=== PATIENT | male | born 1965 | race Two or more races ===

== ENCOUNTER 2024-04-21 01:43 | Inpatient (IN) | payer MEDICAID ==
[~2024-04-21] VITALS: Ht 177.8 cm; Wt 76.1 kg
[2024-04-21] MEDS ORDERED: NO HOME MEDS (02:53)
[2024-04-21] MEDS: D5-1/2NS w/20 mEq potassium per 1000ml IV ONE (03:12)
[2024-04-21 03:27] LABS: BASOPHILS % (AUTO) 0.3 % (0-1); EOSINOPHILS % (AUTO) 0 % (0-6); HEMATOCRIT 45.9 % (42.0-52.0); HEMOGLOBIN 15.4 g/dl (14.0-17.9); LYMPHOCYTES % (AUTO) 9.3 % (21-51); MEAN CORPUSCULAR HEMOGLOBIN 31.6 PG (27.0-31.0); MEAN CORPUSCULAR HGB CONC 33.6 g/dL (33.0-36.5); MEAN CORPUSCULAR VOLUME 94.3 FL (78-98); MONOCYTES % (AUTO) 9.2 % (2-12); NEUTROPHILS # (AUTO) 8.5 X10'3 (1.8-7.7); NEUTROPHILS % (AUTO) 81.2 % (42-75); PLATELET COUNT 210 X10'3 (140-440); RED BLOOD COUNT 4.86 X10'6 (4.70-6.10); RED CELL DISTRIBUTION WIDTH 13.9 % (11.5-14.5); WHITE BLOOD COUNT 10.5 X10'3 (4.5-11.0)
[2024-04-21 03:45] LABS: ALBUMIN 3.8 G/DL (3.4-5.0); ANION GAP 9 (8-16); BLOOD UREA NITROGEN 31 MG/DL (7-18); BUN/CREATININE RATIO 42.5 (10.0-20.0); CALCIUM 8.8 MG/DL (8.5-10.1); CHLORIDE 109 MMOL/L (99-107); CREATININE 0.73 MG/DL (0.60-1.10); GLUCOSE 139 MG/DL (70-104); MAGNESIUM 2.5 MG/DL (1.5-2.4); POTASSIUM 4.1 MMOL/L (3.5-5.1); SODIUM 146 MMOL/L (135-145); TOTAL CARBON DIOXIDE 28.5 MMOL/L (24-32); eCRCL 117 ML/MIN; eGFR > 90 ML/MIN
[2024-04-21 07:01] VITALS: BP 127/88; PULSE 82; RESP 18; TEMP 98.2; O2SAT 98
[2024-04-21] MEDS ORDERED: magnesium Cl slow-release 64mg tablet PO PRN (07:55)
[2024-04-21] MEDS ORDERED: magnesium sulf-water 2g/50mL 50 ML IV PRN (07:55)
[2024-04-21] MEDS ORDERED: magnesium sulf-water 4G/100mL 100 ML IV PRN (07:55)
[2024-04-21] MEDS ORDERED: potassium Cl 40MEQ/1/2NS 520ml 520 ML IV PRN (07:55)
[2024-04-21] MEDS ORDERED: potassium Cl 20 mEq SR tablet PO PRN ×2 (07:55)
[2024-04-21 08:00] VITALS: RESP 22; O2SAT 98
[2024-04-21] MEDS: K and/or MAG REPLACEMENT MC SCH (08:00)
[2024-04-21] MEDS: PERFLUTREN PROTEIN-A MICROSPHR (Optison) 0.22 MG/ML 3ML VIAL IV ONE (08:55)
[2024-04-21] MEDS: heparin, porcine 5000 units/ml vial SQ SCH (08:55)
[2024-04-21] MEDS: pantoprazole 40 MG vial IV SCH (08:56)
[2024-04-21] MEDS: normal saline 1000ml 1,000 ML IV SCH (08:59)
[2024-04-21 10:00] VITALS: BP 117/56; PULSE 69; RESP 16; RESP 22; TEMP 97.7; O2SAT 98
[2024-04-21 15:17] LABS: BILIRUBIN,URINE NEGATIVE (Neg); CLARITY,URINE SLIGHTLY CLOUDY (Clear); COLOR,URINE YELLOW (Yellow); GLUCOSE, URINE NEGATIVE (Neg); KETONES,URINE NEGATIVE (Neg); LEUKOCYTE ESTERASE ,URINE SMALL (Neg); NITRITES, URINE NEGATIVE (Neg); OCCULT BLOOD,URINE NEGATIVE (Neg); PROTEIN,URINE NEGATIVE (Neg); UROBILINOGEN,URINE 0.2 E.U/dL (0.2-1.0)
[2024-04-21 15:19] LABS: UA COLLECTION TYPE CLN CATCH MIDSTREAM
[2024-04-21 15:23] LABS: BACTERIA,URINE FEW /HPF (Neg); RBC,URINE 0-2 /HPF (0-2); SQUAMOUS EPITHELIAL CELL,UR FEW /LPF (FEW); WBC,URINE 20-30 /HPF (0-4)
[2024-04-21 15:42] LABS: URINE AMPHETAMINE SCREEN POSITIVE (Neg); URINE BARBITUATE SCREEN NEGATIVE (Neg); URINE BENZODIAZEPINES SCREEN NEGATIVE (Neg); URINE CANNABINOID SCREEN NEGATIVE (Neg); URINE COCAINE SCREEN POSITIVE (Neg); URINE METHADONE SCREEN NEGATIVE (Neg); URINE OPIATE SCREEN NEGATIVE (Neg); URINE PHENCYCLIDINE SCREEN NEGATIVE (Neg)
[2024-04-21 18:00] VITALS: BP 118/88; PULSE 53; RESP 18; TEMP 98.4; O2SAT 95
[2024-04-21 18:28] LABS: INR 1.1 INR; PROTHROMBIN TIME 11.1 SECONDS (9.0-12.0)
[2024-04-21 20:30] VITALS: RESP 16
[2024-04-21 22:00] VITALS: BP 111/69; PULSE 67; RESP 13; TEMP 98.2; O2SAT 93
[2024-04-22 04:39] LABS: BASOPHILS % (AUTO) 0.5 % (0-1); EOSINOPHILS # (AUTO) 0.1 X10'3 (0-0.9); EOSINOPHILS % (AUTO) 1.6 % (0-6); HEMATOCRIT 40.8 % (42.0-52.0); HEMOGLOBIN 13.6 g/dl (14.0-17.9); LYMPHOCYTES # (AUTO) 2.1 X10'3 (1.1-4.8); MEAN CORPUSCULAR HEMOGLOBIN 31.9 PG (27.0-31.0); MEAN CORPUSCULAR HGB CONC 33.4 g/dL (33.0-36.5); MEAN CORPUSCULAR VOLUME 95.4 FL (78-98); MEAN PLATELET VOLUME 7.9 FL (7.4-10.4); MONOCYTES # (AUTO) 0.7 X10'3 (0-0.9); MONOCYTES % (AUTO) 11.2 % (2-12); NEUTROPHILS % (AUTO) 50.7 % (42-75); PLATELET COUNT 179 X10'3 (140-440); RED BLOOD COUNT 4.28 X10'6 (4.70-6.10); RED CELL DISTRIBUTION WIDTH 14.2 % (11.5-14.5); WHITE BLOOD COUNT 5.9 X10'3 (4.5-11.0)
[2024-04-22 04:55] LABS: ALANINE AMINOTRANSFERASE 17 U/L (12-78); ALBUMIN 3.1 G/DL (3.4-5.0); ALKALINE PHOSPHATASE 44 IU/L (46-116); ANION GAP 4 (8-16); ASPARTATE AMINO TRANSFERASE 15 U/L (10-37); BILIRUBIN,TOTAL 0.4 MG/DL (0.1-1.0); BLOOD UREA NITROGEN 21 MG/DL (7-18); BUN/CREATININE RATIO 29.2 (10.0-20.0); CHLORIDE 110 MMOL/L (99-107); CREATININE 0.72 MG/DL (0.60-1.10); GLUCOSE 85 MG/DL (70-104); MAGNESIUM 1.9 MG/DL (1.5-2.4); PHOSPHORUS 2.7 MG/DL (2.3-4.5); POTASSIUM 3.9 MMOL/L (3.5-5.1); SODIUM 143 MMOL/L (135-145); TOTAL CARBON DIOXIDE 29.1 MMOL/L (24-32); TOTAL PROTEIN 6.2 G/DL (6.4-8.2); eCRCL 118 ML/MIN; eGFR > 90 ML/MIN
[2024-04-22 08:30] VITALS: RESP 16; O2SAT 99
[2024-04-22 10:00] VITALS: BP 128/64; PULSE 58; RESP 17; TEMP 97.9; O2SAT 98
[2024-04-22] MEDS: ringers solution, lacted 1,000 ML IV ONE (15:05)
[2024-04-22 18:00] VITALS: BP 129/88; PULSE 68; RESP 16; TEMP 98.5; O2SAT 95
[2024-04-22 22:00] VITALS: BP 126/85; PULSE 63; RESP 14; TEMP 97.8; O2SAT 94
[2024-04-23] VITALS (17 sets, daily range): BP systolic 123–152; BP diastolic 73–94; PULSE 54–97; RESP 14–27; TEMP 97.7–97.8; O2SAT 90–100
[2024-04-23 04:35] LABS: BASOPHILS % (AUTO) 0.4 % (0-1); EOSINOPHILS # (AUTO) 0.1 X10'3 (0-0.9); EOSINOPHILS % (AUTO) 2.3 % (0-6); HEMATOCRIT 42.6 % (42.0-52.0); HEMOGLOBIN 14.1 g/dl (14.0-17.9); LYMPHOCYTES % (AUTO) 31.6 % (21-51); MEAN CORPUSCULAR HEMOGLOBIN 31.6 PG (27.0-31.0); MEAN CORPUSCULAR HGB CONC 33.2 g/dL (33.0-36.5); MEAN CORPUSCULAR VOLUME 95.3 FL (78-98); MEAN PLATELET VOLUME 7.8 FL (7.4-10.4); MONOCYTES # (AUTO) 0.8 X10'3 (0-0.9); MONOCYTES % (AUTO) 12.1 % (2-12); NEUTROPHILS # (AUTO) 3.3 X10'3 (1.8-7.7); NEUTROPHILS % (AUTO) 53.6 % (42-75); PLATELET COUNT 184 X10'3 (140-440); RED BLOOD COUNT 4.47 X10'6 (4.70-6.10); RED CELL DISTRIBUTION WIDTH 14.2 % (11.5-14.5); WHITE BLOOD COUNT 6.2 X10'3 (4.5-11.0)
[2024-04-23 04:48] LABS: APTT 26 SECONDS (22-32); PROTHROMBIN TIME 10.8 SECONDS (9.0-12.0)
[2024-04-23 04:53] LABS: ALANINE AMINOTRANSFERASE 22 U/L (12-78); ALBUMIN 3.3 G/DL (3.4-5.0); ALKALINE PHOSPHATASE 46 IU/L (46-116); ANION GAP 5 (8-16); ASPARTATE AMINO TRANSFERASE 10 U/L (10-37); BILIRUBIN,TOTAL 0.5 MG/DL (0.1-1.0); BLOOD UREA NITROGEN 18 MG/DL (7-18); CALCIUM 8.2 MG/DL (8.5-10.1); CHLORIDE 107 MMOL/L (99-107); CREATININE 0.58 MG/DL (0.60-1.10); GLUCOSE 91 MG/DL (70-104); MAGNESIUM 2.1 MG/DL (1.5-2.4); PHOSPHORUS 3.4 MG/DL (2.3-4.5); SODIUM 143 MMOL/L (135-145); TOTAL CARBON DIOXIDE 31.1 MMOL/L (24-32); TOTAL PROTEIN 6.5 G/DL (6.4-8.2); eCRCL 147 ML/MIN; eGFR > 90 ML/MIN
[2024-04-23] MEDS: famotidine/PF 10 mg/ml inj IV ONE (06:01)
[2024-04-23] MEDS ORDERED: BUPIVAcaine 0.5% inj/PF 0 ML ONE (07:42)
[2024-04-23] MEDS ORDERED: BUPIVAcaine 2.5mg/ml inj 50ml vial (contains preservative) ONE ×2 (07:42→18:23)
[2024-04-23] MEDS ORDERED: ceFAZolin 1000mg inj ONE (07:42)
[2024-04-23] MEDS ORDERED: ceFOXitin 2GM-NS 100mL ADDvant 100 ML IV SCH (08:00)
[2024-04-23] MEDS: ceFOXitin sod/dextrose 2g/50ml 50 ML IV SCH (08:30)
[2024-04-23] MEDS: ringers solution, lacted 1,000 ML IV SCH (12:00)
[2024-04-23] MEDS ORDERED: meperidine/PF 25mg/ml syringe IV PRN ×3 (12:00)
[2024-04-23] MEDS ORDERED: labetalol 20mg/4ml (5mg/ml) syringe IV PRN (12:00)
[2024-04-23] MEDS ORDERED: morphine 2 MG/ML inj. syringe IV PRN (12:00)
[2024-04-23] MEDS ORDERED: ondansetron/PF 4mg/2ml inj IV PRN (12:00)
[2024-04-23] MEDS ORDERED: hydrALAZINE 20mg/ml inj. IV PRN (12:00)
[2024-04-23] MEDS ORDERED: proCHLORperazine 10 MG/2 ml inj IV PRN (12:00)
[2024-04-23] MEDS ORDERED: sevoflurane 250ml liquid IH ONE (13:28)
[2024-04-23] MEDS ORDERED: midazolam 1 mg/ML 2ml injection ONE (13:41)
[2024-04-23] MEDS ORDERED: propofol inj 0 ML IV ONE (13:57)
[2024-04-23] MEDS ORDERED: rocuronium 10mg/ml inj IV ONE ×4 (13:57→18:57)
[2024-04-23] MEDS ORDERED: fentaNYL /PF 50mcg/ml 5ml ampule ONE (13:57)
[2024-04-23] MEDS ORDERED: ceFOXitin 1000 MG inj ONE ×2 (13:57)
[2024-04-23] MEDS ORDERED: LIDOcaine 2% (20mg/ml) 5ml vial ONE (13:57)
[2024-04-23] MEDS ORDERED: BUPIVACAINE liposomal/PF 13.3 MG/ML 10mL vial IM ONE (18:23)
[2024-04-23] MEDS ORDERED: BUPIVAcaine/PF 2.5mg/ml (0.25%) 10ml vial ONE (18:26)
[2024-04-23] MEDS ORDERED: dexamethasone sod phosphate 4mg/ml inj. ONE (18:30)
[2024-04-23] MEDS ORDERED: propofol inj 20 ML IV ONE (18:30)
[2024-04-23] MEDS ORDERED: 0.9 % SODIUM CHLORIDE 10 ML VIAL ONE (18:30)
[2024-04-23] MEDS ORDERED: ondansetron/PF 4mg/2ml inj ONE (18:30)
[2024-04-23] MEDS ORDERED: ePHEDrine 50MG/ML INJ. ONE (18:31)
[2024-04-23] MEDS ORDERED: albumin (Human) 5% 250ml 250 ML IV ONE ×2 (18:35)
[2024-04-23] MEDS ORDERED: neostigmine methylsulfate 1 MG/ML 10ml vial ONE (19:07)
[2024-04-23] MEDS ORDERED: glycopyrrolate 0.2mg/ml inj ONE (19:07)
[2024-04-23] MEDS ORDERED: sugammadex 200mg/2ml injection IV ONE (19:27)
[2024-04-23] MEDS: morphine 4 MG/ML inj SYRINge IV PRN (19:44)
[2024-04-23] MEDS: ondansetron/PF 4mg/2ml inj IV PRN (19:44)
[2024-04-23] MEDS: acetaminophen 1,000mg/100ml IV 100 ML IV PRN (19:44)
[2024-04-23] MEDS: HYDROmorph/NS 0.2 mg/ml PCA 100 ML IV SCH (21:00)
[2024-04-23] MEDS ORDERED: ondansetron/PF 4mg/2ml inj IM ONE (21:45)
[2024-04-23] MEDS: dextrose 5%-lactated ringers 1,000 ML IV SCH (21:53)
[2024-04-23] MEDS: ondansetron/PF 4mg/2ml inj IV ONE (23:04)
[2024-04-24] VITALS (7 sets, daily range): BP systolic 126–136; BP diastolic 69–82; PULSE 80–108; RESP 16–18; TEMP 97.6–100.7; O2SAT 92–96
[2024-04-24 04:22] LABS: BASOPHILS % (AUTO) 0.1 % (0-1); EOSINOPHILS % (AUTO) 0 % (0-6); HEMATOCRIT 38.6 % (42.0-52.0); HEMOGLOBIN 12.8 g/dl (14.0-17.9); LYMPHOCYTES # (AUTO) 0.6 X10'3 (1.1-4.8); LYMPHOCYTES % (AUTO) 6.8 % (21-51); MEAN CORPUSCULAR HEMOGLOBIN 31.8 PG (27.0-31.0); MEAN CORPUSCULAR HGB CONC 33.2 g/dL (33.0-36.5); MEAN CORPUSCULAR VOLUME 95.7 FL (78-98); MONOCYTES # (AUTO) 0.9 X10'3 (0-0.9); NEUTROPHILS # (AUTO) 7.7 X10'3 (1.8-7.7); NEUTROPHILS % (AUTO) 83.1 % (42-75); PLATELET COUNT 149 X10'3 (140-440); RED BLOOD COUNT 4.03 X10'6 (4.70-6.10); WHITE BLOOD COUNT 9.3 X10'3 (4.5-11.0)
[2024-04-24 04:48] LABS: ALBUMIN 3.4 G/DL (3.4-5.0); ALBUMIN/GLOBULIN RATIO 1.1 (1.1-1.5); ALKALINE PHOSPHATASE 41 IU/L (46-116); ANION GAP 8 (8-16); BILIRUBIN,TOTAL 0.4 MG/DL (0.1-1.0); BLOOD UREA NITROGEN 20 MG/DL (7-18); BUN/CREATININE RATIO 14.1 (10.0-20.0); CALCIUM 7.9 MG/DL (8.5-10.1); CHLORIDE 104 MMOL/L (99-107); CREATININE 1.42 MG/DL (0.60-1.10); GLUCOSE 153 MG/DL (70-104); MAGNESIUM 1.6 MG/DL (1.5-2.4); PHOSPHORUS 3.7 MG/DL (2.3-4.5); POTASSIUM 4.3 MMOL/L (3.5-5.1); SODIUM 139 MMOL/L (135-145); TOTAL CARBON DIOXIDE 26.9 MMOL/L (24-32); TOTAL PROTEIN 6.4 G/DL (6.4-8.2); eCRCL 60 ML/MIN; eGFR 52 ML/MIN
[2024-04-24 04:57] LABS: ALANINE AMINOTRANSFERASE 2372 U/L (12-78); ASPARTATE AMINO TRANSFERASE 1542 U/L (10-37)
[2024-04-25 02:00] VITALS: BP 119/62; PULSE 99; RESP 16; TEMP 98.4; O2SAT 98
[2024-04-25 06:00] VITALS: BP 122/80; PULSE 91; RESP 16; TEMP 97.8; O2SAT 92
[2024-04-25 06:09] LABS: BASOPHILS % (AUTO) 0 % (0-1); EOSINOPHILS % (AUTO) 0.1 % (0-6); HEMATOCRIT 40.5 % (42.0-52.0); HEMOGLOBIN 13.4 g/dl (14.0-17.9); LYMPHOCYTES # (AUTO) 0.8 X10'3 (1.1-4.8); LYMPHOCYTES % (AUTO) 9.3 % (21-51); MEAN CORPUSCULAR HEMOGLOBIN 31.7 PG (27.0-31.0); MEAN PLATELET VOLUME 8.9 FL (7.4-10.4); MONOCYTES # (AUTO) 1.1 X10'3 (0-0.9); MONOCYTES % (AUTO) 12.4 % (2-12); NEUTROPHILS # (AUTO) 7.1 X10'3 (1.8-7.7); NEUTROPHILS % (AUTO) 78.2 % (42-75); PLATELET COUNT 105 X10'3 (140-440); RED BLOOD COUNT 4.22 X10'6 (4.70-6.10); RED CELL DISTRIBUTION WIDTH 14.2 % (11.5-14.5); WHITE BLOOD COUNT 9.1 X10'3 (4.5-11.0)
[2024-04-25 06:46] LABS: ALBUMIN 3.1 G/DL (3.4-5.0); ALBUMIN/GLOBULIN RATIO 0.9 (1.1-1.5); ALKALINE PHOSPHATASE 53 IU/L (46-116); ANION GAP 6 (8-16); BILIRUBIN,TOTAL 0.5 MG/DL (0.1-1.0); BLOOD UREA NITROGEN 16 MG/DL (7-18); BUN/CREATININE RATIO 19.5 (10.0-20.0); CALCIUM 8.2 MG/DL (8.5-10.1); CHLORIDE 104 MMOL/L (99-107); CREATININE 0.82 MG/DL (0.60-1.10); GLUCOSE 112 MG/DL (70-104); MAGNESIUM 1.9 MG/DL (1.5-2.4); PHOSPHORUS 2.6 MG/DL (2.3-4.5); POTASSIUM 4.2 MMOL/L (3.5-5.1); SODIUM 138 MMOL/L (135-145); TOTAL CARBON DIOXIDE 28.5 MMOL/L (24-32); TOTAL PROTEIN 6.4 G/DL (6.4-8.2); eCRCL 104 ML/MIN; eGFR > 90 ML/MIN
[2024-04-25 06:49] LABS: ALANINE AMINOTRANSFERASE 3175 U/L (12-78); ASPARTATE AMINO TRANSFERASE 1674 U/L (10-37)
[2024-04-25 10:00] VITALS: BP 136/88; PULSE 89; RESP 20; TEMP 98.7; O2SAT 94
[2024-04-25 18:00] VITALS: BP 122/77; PULSE 76; RESP 18; TEMP 97.7; O2SAT 97
[2024-04-25 20:00] VITALS: RESP 18; O2SAT 97
[2024-04-25 22:00] VITALS: BP_SYST 128; BP_SYST 143; BP_DIAS 77; BP_DIAS 88; PULSE 106; PULSE 134; RESP 18; RESP 20; TEMP 98.5; O2SAT 93
[2024-04-26 05:00] VITALS: BP 101/62; PULSE 85; RESP 16; TEMP 98.1; O2SAT 93
[2024-04-26 06:06] LABS: BASOPHILS % (AUTO) 0.1 % (0-1); EOSINOPHILS % (AUTO) 0.5 % (0-6); HEMATOCRIT 36.9 % (42.0-52.0); HEMOGLOBIN 12.3 g/dl (14.0-17.9); LYMPHOCYTES % (AUTO) 9.9 % (21-51); MEAN CORPUSCULAR HEMOGLOBIN 31.8 PG (27.0-31.0); MEAN CORPUSCULAR HGB CONC 33.3 g/dL (33.0-36.5); MEAN CORPUSCULAR VOLUME 95.6 FL (78-98); MEAN PLATELET VOLUME 8.3 FL (7.4-10.4); MONOCYTES # (AUTO) 1.1 X10'3 (0-0.9); MONOCYTES % (AUTO) 10.4 % (2-12); NEUTROPHILS # (AUTO) 8.2 X10'3 (1.8-7.7); NEUTROPHILS % (AUTO) 79.1 % (42-75); PLATELET COUNT 122 X10'3 (140-440); RED BLOOD COUNT 3.86 X10'6 (4.70-6.10); WHITE BLOOD COUNT 10.4 X10'3 (4.5-11.0)
[2024-04-26 06:36] LABS: ALBUMIN 2.8 G/DL (3.4-5.0); ALBUMIN/GLOBULIN RATIO 0.8 (1.1-1.5); ALKALINE PHOSPHATASE 60 IU/L (46-116); ANION GAP 5 (8-16); ASPARTATE AMINO TRANSFERASE 868 U/L (10-37); BILIRUBIN,TOTAL 0.7 MG/DL (0.1-1.0); BLOOD UREA NITROGEN 15 MG/DL (7-18); BUN/CREATININE RATIO 18.8 (10.0-20.0); CHLORIDE 101 MMOL/L (99-107); GLUCOSE 100 MG/DL (70-104); MAGNESIUM 1.9 MG/DL (1.5-2.4); PHOSPHORUS 2.6 MG/DL (2.3-4.5); POTASSIUM 3.4 MMOL/L (3.5-5.1); SODIUM 137 MMOL/L (135-145); TOTAL CARBON DIOXIDE 31.4 MMOL/L (24-32); TOTAL PROTEIN 6.3 G/DL (6.4-8.2); eCRCL 106 ML/MIN; eGFR > 90 ML/MIN
[2024-04-26 06:39] LABS: ALANINE AMINOTRANSFERASE 2321 U/L (12-78)
[2024-04-26 09:28] VITALS: RESP 16; O2SAT 93
[2024-04-26 10:00] VITALS: BP 122/77; PULSE 87; RESP 20; TEMP 98.4; O2SAT 95
[2024-04-26] MEDS ORDERED: pantoprazole 40 MG vial IV SCH (10:35)
[2024-04-26] MEDS ORDERED: magnesium sulf-water 2g/50mL 50 ML IV PRN (10:55)
[2024-04-26] MEDS ORDERED: magnesium Cl slow-release 64mg tablet PO PRN (10:55)
[2024-04-26] MEDS ORDERED: potassium Cl 20 mEq SR tablet PO PRN ×2 (10:55)
[2024-04-26] MEDS ORDERED: magnesium sulf-water 4G/100mL 100 ML IV PRN (10:55)
[2024-04-26] MEDS ORDERED: potassium Cl 40MEQ/1/2NS 520ml 520 ML IV PRN (10:55)
[2024-04-26] MEDS: HYDROmorph/NS 0.2 mg/ml PCA 100 ML IV SCH (11:00)
[2024-04-26] MEDS: diatr meglu/diatrizoate 30ml oral sol.-(3 dose) bottle PO SCH (11:42)
[2024-04-26] MEDS ORDERED: iohexol 300mg/ml 100ml inj. ONE (15:53)
[2024-04-26 18:55] VITALS: BP 133/78; PULSE 79; RESP 17; TEMP 100.5; O2SAT 92
[2024-04-26] MEDS: K and/or MAG REPLACEMENT MC SCH (20:00)
[2024-04-26] MEDS: pantoprazole 40 MG vial IV SCH (20:06)
[2024-04-27 06:56] VITALS: BP 128/73; PULSE 88; RESP 20; TEMP 99.1; O2SAT 95
[2024-04-27 08:00] VITALS: RESP 16; RESP 18; O2SAT 95
[2024-04-27 08:59] LABS: BASOPHILS % (AUTO) 0.3 % (0-1); EOSINOPHILS # (AUTO) 0.1 X10'3 (0-0.9); EOSINOPHILS % (AUTO) 1.8 % (0-6); HEMOGLOBIN 11.4 g/dl (14.0-17.9); LYMPHOCYTES # (AUTO) 0.8 X10'3 (1.1-4.8); LYMPHOCYTES % (AUTO) 11.7 % (21-51); MEAN CORPUSCULAR HEMOGLOBIN 31.9 PG (27.0-31.0); MEAN CORPUSCULAR HGB CONC 33.6 g/dL (33.0-36.5); MEAN PLATELET VOLUME 7.4 FL (7.4-10.4); MONOCYTES # (AUTO) 0.9 X10'3 (0-0.9); MONOCYTES % (AUTO) 12.7 % (2-12); NEUTROPHILS # (AUTO) 5.3 X10'3 (1.8-7.7); NEUTROPHILS % (AUTO) 73.5 % (42-75); PLATELET COUNT 165 X10'3 (140-440); RED BLOOD COUNT 3.58 X10'6 (4.70-6.10); RED CELL DISTRIBUTION WIDTH 13.9 % (11.5-14.5); WHITE BLOOD COUNT 7.2 X10'3 (4.5-11.0)
[2024-04-27] MEDS: pantoprazole 40mg Tablet.DR PO SCH (09:12)
[2024-04-27 09:17] LABS: ALBUMIN 2.6 G/DL (3.4-5.0); ALBUMIN/GLOBULIN RATIO 0.7 (1.1-1.5); ALKALINE PHOSPHATASE 59 IU/L (46-116); ANION GAP 3 (8-16); ASPARTATE AMINO TRANSFERASE 258 U/L (10-37); BILIRUBIN,TOTAL 0.6 MG/DL (0.1-1.0); BLOOD UREA NITROGEN 10 MG/DL (7-18); BUN/CREATININE RATIO 13.9 (10.0-20.0); CALCIUM 8.3 MG/DL (8.5-10.1); CHLORIDE 103 MMOL/L (99-107); CREATININE 0.72 MG/DL (0.60-1.10); GLUCOSE 94 MG/DL (70-104); POTASSIUM 4.3 MMOL/L (3.5-5.1); SODIUM 140 MMOL/L (135-145); TOTAL PROTEIN 6.2 G/DL (6.4-8.2); eCRCL 118 ML/MIN; eGFR > 90 ML/MIN
[2024-04-27 09:19] LABS: ALANINE AMINOTRANSFERASE 1316 U/L (12-78)
[2024-04-27 11:00] VITALS: BP 144/99; PULSE 68; RESP 17; TEMP 97.9; O2SAT 97
[2024-04-27] MEDS: metoclopramide 5 mg/ml inj IV SCH (14:44)
[2024-04-27 18:00] VITALS: BP 153/117; PULSE 75; RESP 16; TEMP 97.4; O2SAT 99
[2024-04-27] MEDS: magnesium hydroxide 30ml (MOM) UD suspension PO SCH (21:25)
[2024-04-27 22:00] VITALS: BP 144/77; PULSE 90; RESP 18; TEMP 99.9; O2SAT 92
[2024-04-28] MEDS: PCA WASTE DOCUMENTATION 1 MG ML MC SCH (02:54)
[2024-04-28 06:00] VITALS: BP 107/68; PULSE 66; RESP 18; TEMP 98.7; O2SAT 99
[2024-04-28 09:00] LABS: EOSINOPHILS # (AUTO) 0.2 X10'3 (0-0.9); HEMOGLOBIN 11.4 g/dl (14.0-17.9); LYMPHOCYTES # (AUTO) 0.8 X10'3 (1.1-4.8); MONOCYTES # (AUTO) 0.8 X10'3 (0-0.9); WHITE BLOOD COUNT 5.6 X10'3 (4.5-11.0)
[2024-04-28 09:02] LABS: BASOPHILS % (AUTO) 0.2 % (0-1); EOSINOPHILS % (AUTO) 3.1 % (0-6); HEMATOCRIT 33.8 % (42.0-52.0); MEAN CORPUSCULAR HEMOGLOBIN 31.8 PG (27.0-31.0); MEAN CORPUSCULAR HGB CONC 33.6 g/dL (33.0-36.5); MEAN CORPUSCULAR VOLUME 94.8 FL (78-98); MONOCYTES % (AUTO) 14.7 % (2-12); NEUTROPHILS # (AUTO) 3.8 X10'3 (1.8-7.7); PLATELET COUNT 212 X10'3 (140-440); RED BLOOD COUNT 3.57 X10'6 (4.70-6.10); RED CELL DISTRIBUTION WIDTH 13.7 % (11.5-14.5)
[2024-04-28 09:03] LABS: ALBUMIN 2.5 G/DL (3.4-5.0); ANION GAP 5 (8-16); BLOOD UREA NITROGEN 9 MG/DL (7-18); BUN/CREATININE RATIO 10.1 (10.0-20.0); CALCIUM 8.2 MG/DL (8.5-10.1); CHLORIDE 104 MMOL/L (99-107); CREATININE 0.89 MG/DL (0.60-1.10); GLUCOSE 101 MG/DL (70-104); POTASSIUM 3.8 MMOL/L (3.5-5.1); SODIUM 138 MMOL/L (135-145); eCRCL 96 ML/MIN; eGFR 88 ML/MIN
[2024-04-28 10:00] VITALS: BP 114/66; PULSE 80; RESP 20; TEMP 98.6; O2SAT 97
[2024-04-28 18:00] VITALS: BP_SYST 131; BP_SYST 132; BP_DIAS 78; BP_DIAS 84; PULSE 64; PULSE 68; RESP 14; RESP 18; TEMP 97.9; TEMP 98.5; O2SAT 96; O2SAT 97
[2024-04-28] MEDS: enoxaparin 40mg/0.4ml syringe SUBCUT SCH (19:51)
[2024-04-28] MEDS: HYDROcodone/acetaminophen 10/325mg tab PO PRN (19:51)
[2024-04-28 22:00] VITALS: BP 131/84; PULSE 64; RESP 14; TEMP 98.5; O2SAT 96
[2024-04-29 05:27] VITALS: BP 117/74; PULSE 75; RESP 20; TEMP 99; O2SAT 97
[2024-04-29] MEDS: HYDROmorphone inj. 0.5 MG/0.5 ML DISP.SYRIN IV PRN (05:33)
[2024-04-29 08:00] VITALS: RESP 18; O2SAT 96
[2024-04-29 09:55] LABS: BASOPHILS % (AUTO) 0.1 % (0-1); EOSINOPHILS # (AUTO) 0.2 X10'3 (0-0.9); EOSINOPHILS % (AUTO) 3.4 % (0-6); HEMATOCRIT 35.2 % (42.0-52.0); HEMOGLOBIN 11.9 g/dl (14.0-17.9); LYMPHOCYTES # (AUTO) 0.8 X10'3 (1.1-4.8); LYMPHOCYTES % (AUTO) 11.8 % (21-51); MEAN CORPUSCULAR HGB CONC 33.8 g/dL (33.0-36.5); MEAN CORPUSCULAR VOLUME 94.8 FL (78-98); MEAN PLATELET VOLUME 6.8 FL (7.4-10.4); MONOCYTES # (AUTO) 0.9 X10'3 (0-0.9); MONOCYTES % (AUTO) 13.7 % (2-12); NEUTROPHILS # (AUTO) 4.8 X10'3 (1.8-7.7); PLATELET COUNT 271 X10'3 (140-440); RED BLOOD COUNT 3.71 X10'6 (4.70-6.10); RED CELL DISTRIBUTION WIDTH 13.8 % (11.5-14.5); WHITE BLOOD COUNT 6.7 X10'3 (4.5-11.0)
[2024-04-29 10:00] VITALS: BP 143/69; RESP 17; TEMP 98.6; O2SAT 96
[2024-04-29 10:10] LABS: ALANINE AMINOTRANSFERASE 650 U/L (12-78); ALBUMIN 2.8 G/DL (3.4-5.0); ALBUMIN/GLOBULIN RATIO 0.7 (1.1-1.5); ALKALINE PHOSPHATASE 63 IU/L (46-116); ANION GAP 7 (8-16); ASPARTATE AMINO TRANSFERASE 83 U/L (10-37); BILIRUBIN,TOTAL 0.5 MG/DL (0.1-1.0); BLOOD UREA NITROGEN 8 MG/DL (7-18); BUN/CREATININE RATIO 7.2 (10.0-20.0); CALCIUM 8.7 MG/DL (8.5-10.1); CHLORIDE 102 MMOL/L (99-107); CREATININE 1.11 MG/DL (0.60-1.10); GLUCOSE 113 MG/DL (70-104); SODIUM 137 MMOL/L (135-145); TOTAL PROTEIN 7.1 G/DL (6.4-8.2); eCRCL 77 ML/MIN; eGFR 69 ML/MIN
[2024-04-29 18:00] VITALS: BP 135/79; PULSE 61; RESP 17; TEMP 98.6; O2SAT 98
[2024-04-29 22:00] VITALS: BP 147/87; PULSE 61; RESP 21; TEMP 98.2; O2SAT 97
[2024-04-30 06:00] VITALS: BP 117/57; PULSE 59; RESP 16; TEMP 98.2; O2SAT 94
[2024-04-30 09:25] LABS: BASOPHILS % (AUTO) 0.3 % (0-1); EOSINOPHILS # (AUTO) 0.2 X10'3 (0-0.9); EOSINOPHILS % (AUTO) 2.6 % (0-6); HEMATOCRIT 34.7 % (42.0-52.0); HEMOGLOBIN 11.9 g/dl (14.0-17.9); LYMPHOCYTES # (AUTO) 0.9 X10'3 (1.1-4.8); LYMPHOCYTES % (AUTO) 12.2 % (21-51); MEAN CORPUSCULAR HEMOGLOBIN 32.2 PG (27.0-31.0); MEAN CORPUSCULAR HGB CONC 34.3 g/dL (33.0-36.5); MEAN PLATELET VOLUME 6.4 FL (7.4-10.4); MONOCYTES # (AUTO) 0.9 X10'3 (0-0.9); MONOCYTES % (AUTO) 11.9 % (2-12); NEUTROPHILS # (AUTO) 5.3 X10'3 (1.8-7.7); PLATELET COUNT 314 X10'3 (140-440); RED BLOOD COUNT 3.69 X10'6 (4.70-6.10); RED CELL DISTRIBUTION WIDTH 13.9 % (11.5-14.5); WHITE BLOOD COUNT 7.3 X10'3 (4.5-11.0)
[2024-04-30 09:26] VITALS: RESP 18
[2024-04-30 09:50] LABS: ALANINE AMINOTRANSFERASE 476 U/L (12-78); ALBUMIN 2.7 G/DL (3.4-5.0); ALBUMIN/GLOBULIN RATIO 0.7 (1.1-1.5); ALKALINE PHOSPHATASE 63 IU/L (46-116); ASPARTATE AMINO TRANSFERASE 80 U/L (10-37); BILIRUBIN,TOTAL 0.4 MG/DL (0.1-1.0); BLOOD UREA NITROGEN 11 MG/DL (7-18); BUN/CREATININE RATIO 15.1 (10.0-20.0); CALCIUM 8.4 MG/DL (8.5-10.1); CREATININE 0.73 MG/DL (0.60-1.10); GLUCOSE 96 MG/DL (70-104); POTASSIUM 4.6 MMOL/L (3.5-5.1); SODIUM 138 MMOL/L (135-145); TOTAL PROTEIN 6.7 G/DL (6.4-8.2); eCRCL 117 ML/MIN; eGFR > 90 ML/MIN
[2024-04-30 09:51] LABS: ANION GAP 3 (8-16); CHLORIDE 104 MMOL/L (99-107)
[2024-04-30 10:00] VITALS: BP 100/63; PULSE 56; RESP 16; TEMP 97.6; O2SAT 96
[2024-04-30 18:00] VITALS: BP 111/68; PULSE 74; RESP 18; TEMP 97.5; O2SAT 97
[2024-04-30 22:00] VITALS: BP 110/69; PULSE 66; RESP 20; TEMP 98.3; O2SAT 94
[2024-05-01] VITALS (18 sets, daily range): BP systolic 102–161; BP diastolic 61–104; PULSE 56–83; RESP 16–18; TEMP 97.5–98.4; O2SAT 89–98
[2024-05-01 04:54] LABS: BASOPHILS % (AUTO) 0.4 % (0-1); EOSINOPHILS # (AUTO) 0.3 X10'3 (0-0.9); EOSINOPHILS % (AUTO) 3.3 % (0-6); HEMATOCRIT 35.7 % (42.0-52.0); HEMOGLOBIN 11.8 g/dl (14.0-17.9); LYMPHOCYTES # (AUTO) 1.2 X10'3 (1.1-4.8); LYMPHOCYTES % (AUTO) 15.6 % (21-51); MEAN CORPUSCULAR HEMOGLOBIN 31.5 PG (27.0-31.0); MEAN CORPUSCULAR HGB CONC 33.1 g/dL (33.0-36.5); MEAN CORPUSCULAR VOLUME 95.4 FL (78-98); MEAN PLATELET VOLUME 6.3 FL (7.4-10.4); MONOCYTES % (AUTO) 12.8 % (2-12); NEUTROPHILS # (AUTO) 5.2 X10'3 (1.8-7.7); NEUTROPHILS % (AUTO) 67.9 % (42-75); PLATELET COUNT 372 X10'3 (140-440); RED BLOOD COUNT 3.74 X10'6 (4.70-6.10); WHITE BLOOD COUNT 7.7 X10'3 (4.5-11.0)
[2024-05-01 05:05] LABS: APTT 26 SECONDS (22-32); PROTHROMBIN TIME 10.9 SECONDS (9.0-12.0)
[2024-05-01 05:08] LABS: ALBUMIN 2.8 G/DL (3.4-5.0); BLOOD UREA NITROGEN 17 MG/DL (7-18); BUN/CREATININE RATIO 20.2 (10.0-20.0); CALCIUM 8.3 MG/DL (8.5-10.1); CREATININE 0.84 MG/DL (0.60-1.10); GLUCOSE 87 MG/DL (70-104); POTASSIUM 4.1 MMOL/L (3.5-5.1); SODIUM 138 MMOL/L (135-145); TOTAL CARBON DIOXIDE 32.7 MMOL/L (24-32); eCRCL 101 ML/MIN; eGFR > 90 ML/MIN
[2024-05-01 05:22] LABS: ANION GAP 2 (8-16); CHLORIDE 103 MMOL/L (99-107)
[2024-05-02] VITALS (7 sets, daily range): BP systolic 113–126; BP diastolic 68–84; PULSE 51–72; RESP 13–18; TEMP 98.2–99.2; O2SAT 93–97
[2024-05-02] MEDS: morphine 2 MG/ML inj. syringe IV PRN (00:56)
[2024-05-02 08:53] LABS: BASOPHILS % (AUTO) 0.2 % (0-1); EOSINOPHILS # (AUTO) 0.2 X10'3 (0-0.9); HEMATOCRIT 36.3 % (42.0-52.0); HEMOGLOBIN 12.2 g/dl (14.0-17.9); LYMPHOCYTES # (AUTO) 1.1 X10'3 (1.1-4.8); LYMPHOCYTES % (AUTO) 10.5 % (21-51); MEAN CORPUSCULAR HEMOGLOBIN 31.7 PG (27.0-31.0); MEAN CORPUSCULAR HGB CONC 33.6 g/dL (33.0-36.5); MEAN CORPUSCULAR VOLUME 94.3 FL (78-98); MEAN PLATELET VOLUME 6.5 FL (7.4-10.4); MONOCYTES % (AUTO) 9.5 % (2-12); NEUTROPHILS % (AUTO) 77.8 % (42-75); PLATELET COUNT 387 X10'3 (140-440); RED BLOOD COUNT 3.85 X10'6 (4.70-6.10); RED CELL DISTRIBUTION WIDTH 13.8 % (11.5-14.5); WHITE BLOOD COUNT 10.3 X10'3 (4.5-11.0)
[2024-05-02 09:11] LABS: ALBUMIN 2.9 G/DL (3.4-5.0); BLOOD UREA NITROGEN 18 MG/DL (7-18); BUN/CREATININE RATIO 20.9 (10.0-20.0); CALCIUM 8.3 MG/DL (8.5-10.1); CREATININE 0.86 MG/DL (0.60-1.10); GLUCOSE 95 MG/DL (70-104); TOTAL CARBON DIOXIDE 31.7 MMOL/L (24-32); eCRCL 99 ML/MIN; eGFR > 90 ML/MIN
[2024-05-02 09:13] LABS: ANION GAP 2 (8-16); CHLORIDE 101 MMOL/L (99-107); POTASSIUM 4.7 MMOL/L (3.5-5.1); SODIUM 135 MMOL/L (135-145)
[2024-05-02] MEDS: LIDOcaine 5% patch TP ONE (12:17)
[2024-05-02] MEDS: bisacodyl 10mg suppository rectal RC STA (19:53)
[2024-05-03 06:00] VITALS: BP 101/64; PULSE 63; RESP 16; TEMP 98; O2SAT 95
[2024-05-03 08:00] VITALS: RESP 16; O2SAT 95
[2024-05-03 10:00] VITALS: BP 108/64; PULSE 75; RESP 14; TEMP 98.4; O2SAT 96
[2024-05-03 14:08] VITALS: RESP 16
[2024-05-03 16:02] VITALS: RESP 18
[2024-05-03] MEDS ORDERED: HYDR-3973 PO (20:44)
== END 2024-05-03 19:46 | disposition home or self-care (01) | DRG 220 ==
LOC: ER 01:44 → ED HOLD 03:55 → SUR 3N 06:59
PROVIDERS: ADMIT Internal Medicine Critical Care Medicine; ATTEND Internal Medicine
PROC: 0BJT4ZZ Inspection of Diaphragm, Percutaneous Endoscopic Approach (ICD-10-PCS; 2024-04-23)
PROC: 8E0W4CZ Robotic Assisted Procedure of Trunk Region, Percutaneous Endoscopic Approach (ICD-10-PCS; 2024-04-23)
PROC: 0DH60UZ Insertion of Feeding Device into Stomach, Open Approach (ICD-10-PCS; 2024-04-23)
PROC: 0BQT0ZZ Repair Diaphragm, Open Approach (ICD-10-PCS; principal; 2024-04-23 13:28)
PROC: 0W9B30Z Drainage of Left Pleural Cavity with Drainage Device, Percutaneous Approach (ICD-10-PCS; 2024-05-01)
DX: K44.0 Diaphragmatic hernia with obstruction, without gangrene (principal); N17.0 Acute kidney failure with tubular necrosis; E44.0 Moderate protein-calorie malnutrition; J90 Pleural effusion, not elsewhere classified; F14.90 Cocaine use, unspecified, uncomplicated; Z68.24 Body mass index [BMI] 24.0-24.9, adult; R14.0 Abdominal distension (gaseous); N50.812 Left testicular pain; F15.90 Other stimulant use, unspecified, uncomplicated; Z87.11 Personal history of peptic ulcer disease
CPT/HCPCS: 32557; 36415; 71045; 71250; 71260; 74018; 74176; 74177; 77012; 80048; 80053; 80305; 81001; 82948; 83605; 83735; 84100; 84145; 85025; 85610; 85651; 85730; 86885; 86900; 86901; 87070; 87081; 87088; 93005; 93306; 96361; 96372; 96374; 99291; A4215; A4314; A4421; A4615; A4618; A6212; A6250; A6253; A6258; A6266; A6449; B4087; C1758; C1781; G0378; J0131; J0666; J0690; J0694; J1100; J1171; J1644; J1650; J2003; J2250; J2270; J2405; J2470; J2704; J2710; J2765; J3010; J3480; J3490; J7030; J7120; J7121; P9045; Q9963; Q9967

== ENCOUNTER 2024-05-11 16:09 | Emergency (ER) | payer MEDICAID ==
[~2024-05-11] VITALS: Ht 172.7 cm; Wt 76.0 kg
[2024-05-11 16:53] VITALS: BP 121/76; PULSE 72; TEMP 99.5; O2SAT 99
[2024-05-11 17:46] LABS: ALBUMIN 3.2 G/DL (3.4-5.0); ANION GAP 4 (8-16); BLOOD UREA NITROGEN 16 MG/DL (7-18); BUN/CREATININE RATIO 22.2 (10.0-20.0); CALCIUM 8.9 MG/DL (8.5-10.1); CHLORIDE 104 MMOL/L (99-107); CREATININE 0.72 MG/DL (0.60-1.10); GLUCOSE 93 MG/DL (70-104); POTASSIUM 4.1 MMOL/L (3.5-5.1); SODIUM 140 MMOL/L (135-145); TOTAL CARBON DIOXIDE 31.7 MMOL/L (24-32); eCRCL 111 ML/MIN; eGFR > 90 ML/MIN
[2024-05-11 17:53] LABS: BASOPHILS % (AUTO) 0.6 % (0-1); EOSINOPHILS # (AUTO) 0.2 X10'3 (0-0.9); EOSINOPHILS % (AUTO) 2.7 % (0-6); HEMATOCRIT 36.2 % (42.0-52.0); HEMOGLOBIN 12.2 g/dl (14.0-17.9); LYMPHOCYTES # (AUTO) 1.3 X10'3 (1.1-4.8); LYMPHOCYTES % (AUTO) 20.3 % (21-51); MEAN CORPUSCULAR HEMOGLOBIN 31.5 PG (27.0-31.0); MEAN CORPUSCULAR HGB CONC 33.7 g/dL (33.0-36.5); MEAN CORPUSCULAR VOLUME 93.6 FL (78-98); MEAN PLATELET VOLUME 6.9 FL (7.4-10.4); MONOCYTES # (AUTO) 0.8 X10'3 (0-0.9); MONOCYTES % (AUTO) 12.7 % (2-12); NEUTROPHILS % (AUTO) 63.7 % (42-75); PLATELET COUNT 454 X10'3 (140-440); RED BLOOD COUNT 3.87 X10'6 (4.70-6.10); WHITE BLOOD COUNT 6.3 X10'3 (4.5-11.0)
[2024-05-11] MEDS ORDERED: iohexol 300mg/ml 100ml inj. ONE (18:32)
[2024-05-11] MEDS: ondansetron 4mg rapidly disintigrating tab PO ONE (19:06)
[2024-05-11 19:07] VITALS: RESP 16
[2024-05-11] MEDS: HYDROcodone/acetaminophen 10/325mg tab PO ONE (19:07)
[2024-05-11] MEDS: normal saline 1000ml 1,000 ML IV ONE (19:09)
[2024-05-11] MEDS ORDERED: AMOX-115 PO (19:50)
[2024-05-11] MEDS: amox tr/potassium clavulanate 500mg/125mg TAB PO ONE (19:54)
== END 2024-05-11 20:21 | disposition home or self-care (01) ==
LOC: ER 16:09
DX: T81.9XXA Unspecified complication of procedure, initial encounter (principal); Y92.89 Other specified places as the place of occurrence of the external cause
CPT/HCPCS: 36415; 71045; 71260; 74177; 80048; 83605; 84145; 85025; 87040; 96360; 99284; J7030; Q9967